=== PATIENT | female | born 1975 | race Caucasian/White ===

== ENCOUNTER 2017-04-27 08:09 | Day surgery (SDC) | payer OTHER ==
[~2017-04-27 08:09] MED LIST: NOLVADEX10 MG PO; OSTERA TABLET1 EACH PO; [UNRECOGNIZED DRUG - OTHER] PO
== END 2017-04-27 19:05 | disposition home or self-care (01) ==
LOC: CIR.AMB 08:09
DX: Z90.13 Acquired absence of bilateral breasts and nipples (principal)

== ENCOUNTER 2018-05-17 05:43 | Day surgery (SDC) | payer OTHER ==
[~2018-05-17 05:43] MED LIST changes: +ARIMIDEX PO; +CEFPROZIL250 MG/5 M PO; +FLONASE16 GM; +ZOLADEX3.6 MG SUBCUTANEO
== END 2018-05-17 13:00 | disposition home or self-care (01) ==
LOC: CIR.AMB 05:43
DX: N65.1 Disproportion of reconstructed breast (principal); Z90.13 Acquired absence of bilateral breasts and nipples